=== PATIENT | male | born 1965 | race Caucasian/White ===

== ENCOUNTER 2023-03-06 10:17 | Inpatient (IN) | payer SELFPAY ==
[2023-03-06] MEDS ORDERED: NA CHLORIDE 0.9% 1,000 ML ONE (10:37)
--- NOTE | 2023-03-06 10:44 | RAD REPORT ---
EXAM DESCRIPTION: RAD - Chest Single View - 03/06/2023 10:34 am CLINICAL HISTORY: COUGH COMPARISON: No comparisons FINDINGS: Lines: None. Lungs: Right upper lobe masslike opacity with widespread irregular airspace disease bilaterally. Pleural: No significant pleural effusions or pneumothorax. Cardiac: The heart size is within normal limits. Mediastinum: Esophageal stent. Tracheostomy. Bones: No acute fractures. Other: Left IJ approach Port-A-Cath with tip overlying the SVC. IMPRESSION: Widespread airspace disease including a masslike right upper lobe opacity. These finding s could represent a combination of factors including pneumonia, metastatic disease, and less likely, edema.
[2023-03-06 11:00] LABS: Absolute Lymphocytes (CBC) 0.3 K/uL (0.7-4.9); Hematocrit 30.4 % (39.6-49.0); Lymphocytes % 3.2 % (15.3-44.8); MCV 80.1 fL (80-100)
[2023-03-06 11:06] LABS: Protime INR 1.19
[2023-03-06] MEDS ORDERED: VANCOMYCIN 1 GM/VIAL ONE (11:15)
[2023-03-06] MEDS ORDERED: CEFEPIME 2 GM VIAL ONE (11:15)
[2023-03-06] MEDS ORDERED: NA CHLORIDE 0.9% 100 ML ONE (11:16)
[2023-03-06] MEDS ORDERED: NA CHLORIDE 0.9% 250 ML ONE (11:16)
[2023-03-06 11:17] LABS: Albumin 2.2 g/dL (3.4-5.0); Bilirubin Total 0.4 mg/dL (0.2-1.0); Potassium 5.1 mEq/L (3.5-5.1); Protein, Total 7.2 g/dL (6.4-8.2)
[2023-03-06 11:24] LABS: Anisocytosis 2+; Blood Morphology Comment NOTED (NOT SEEN); Platelet Estimate INCR
--- NOTE | 2023-03-06 12:10 | EDPHYS ---
Physician Documentation [facility] Name: Diego Mclean Age: 57 yrs Sex: Male : 1965 Arrival Date: 03/06/2023 Time: 10:17 Bed 4 Private MD: ED Physician Tal Anton HPI: 03/06 10:59 This 57 yrs old Male presents to ER via EMS with complaints of Respiratory Distress. rt 10:59 Patient with history of advanced lung cancer presents to the ED with hypoxia. Patient rt called EMS for dehydration, was recently discharged from [facility] for the same. Oxygen saturations were noted to be at 75% on room air. The patient reports increased tracheal sputum. The patient reports continued cough, dyspnea. Denies other acute complaints at this time. Symptoms are severe in severity, no other aggravating or alleviating factors.. Historical: - Allergies: 10:38 No Known Allergies; ss - PMHx: 10:38 Lung CA; ss 11:02 Diabetes mellitus; ss - PSHx: 10:38 Trach placement; ss - Immunization history:: Client reports receiving the 2nd dose of the Covid vaccine. - Family history:: not pertinent. ROS: 10:59 Constitutional: Negative for fever, chills, and weight loss, Cardiovascular: Negative rt for chest pain, palpitations, and edema, Abdomen/GI: Negative for abdominal pain, nausea, vomiting, diarrhea, and constipation, MS/Extremity: Negative for injury and deformity, Skin: Negative for injury, rash, and discoloration, Neuro: Negative for headache, weakness, numbness, tingling, and seizure, Psych: Negative for depression, anxiety, suicide ideation, homicidal ideation, and hallucinations. 10:59 Respiratory: Positive for cough, shortness of breath. Exam: 10:59 Constitutional: This is a well developed, well nourished patient who is awake, alert, rt and in no acute distress. Head/Face: Normocephalic, atraumatic. Chest/axilla: Normal chest wall appearance and motion. Nontender with no deformity. No lesions are appreciated. Cardiovascular: Regular rate and rhythm with a normal S1 and S2. No gallops, murmurs, or rubs. Normal PMI, no JVD. No pulse deficits. Abdomen/GI: Soft, non-tender, with normal bowel sounds. No distension or tympany. No guarding or rebound. No evidence of tenderness throughout. Skin: Warm, dry with normal turgor. Normal color with no rashes, no lesions, and no evidence of cellulitis. MS/ Extremity: Pulses equal, no cyanosis. Neurovascular intact. Full, normal range of motion. 10:59 Neck: Tracheostomy in place with copious amounts of thick sputum. 10:59 Respiratory: Diminished, coarse breath sounds diffusely with transmitted upper airway sounds. 11:17 ECG was reviewed by the Attending Physician. rt Vital Signs: 10:20 BP 103 / 54; Pulse 105; Resp 22; Temp 97.6(TE); Pulse Ox 82% on R/A; ss 10:58 Pulse 111; Resp 24; Pulse Ox 94% on trach collar \T\ 10 L; ss 11:13 BP 113 / 75; Pulse Ox 95% on tach collar; ss 11:26 Weight 72.57 kg; Height 5 ft. 5 in. ; ss 12:22 BP 106 / 69; Pulse 108; Resp 22; Pulse Ox 98% on R/A; ss 11:26 Body Mass Index 26.63 (72.57 kg, 165.1 cm) ss MDM: 10:20 Patient medically screened. rt 14:32 Differential diagnosis: CHF exacerbation, Chronic Obstructive Pulmonary Disease rt pneumonia, Pneumothorax Pulmonary Embolism. Antibiotic administration: The patient is for pseudomonal infection. Data reviewed: vital signs, nurses notes, lab test result(s), EKG, radiologic studies. Consideration of Admission/Observation Patient was admitted/placed on observation. Management of patient was discussed with the following: Hospitalist: Agrees to admit. Supervisor Assembly And Packing: Discussed with pulmonary on-call, get admitted here, recommend CT angiogram. I considered the following discharge prescriptions or medication management in the emergency department Medications were administered in the Emergency Department. See MAR. Care significantly affected by the following chronic conditions: lung cancer. Counseling: I had a detailed discussion with the patient and/or guardian regarding: the historical points, exam findings, and any diagnostic results supporting the discharge/admit diagnosis, lab results, radiology results, the need for further work-up and treatment in the hospital. 03/06 10:22 Order name: Blood Culture Adult (2) rt 03/06 10:22 Order name: CBC with Diff; Complete Time: 11:38 rt 03/06 10:22 Order name: CMP; Complete Time: 11:38 rt 03/06 10:22 Order name: Lactate w/ 2H reflex if indic.; Complete Time: 11:38 rt 03/06 10:22 Order name: Protime (+inr); Complete Time: 11:38 rt 03/06 10:22 Order name: Ptt, Activated; Complete Time: 11:38 rt 03/06 10:22 Order name: Urinalysis w/ reflexes rt 03/06 10:22 Order name: Sputum Culture rt 03/06 11:03 Order name: COVID-19 SARS RT PCR; Complete Time: 12:07 ss 03/06 11:03 Order name: Flu; Complete Time: 12:07 ss 03/06 11:04 Order name: Manual Differential; Complete Time: 11:38 EDMS 03/06 14:14 Order name: Lactate Sepsis 2 HR Follow-up; Complete Time: 14:26 EDMS 03/06 14:50 Order name: Basic Metabolic Panel EDMS 03/06 14:50 Order name: Basic Metabolic Panel EDMS 03/06 14:50 Order name: CBC with Automated Diff EDMS 03/06 14:50 Order name: CBC with Automated Diff EDMS 03/06 14:50 Order name: Comprehensive Metabolic Panel EDMS 03/06 14:50 Order name: Comprehensive Metabolic Panel EDMS 03/06 14:50 Order name: Troponin High Sensitivity EDMS 03/06 10:22 Order name: Chest Single View XRAY; Complete Time: 10:52 rt 03/06 14:30 Order name: CT Chest Angio rt 03/06 10:22 Order name: EKG; Complete Time: 10:23 rt 03/06 14:50 Order name: Full Liquid EDMS 03/06 10:22 Order name: Cardiac monitoring; Complete Time: 10:58 rt 03/06 10:22 Order name: EKG - Nurse/Tech; Complete Time: 11:17 rt 03/06 10:22 Order name: IV Saline Lock - Large Bore; Complete Time: 10:58 rt 03/06 10:22 Order name: Labs collected and sent; Complete Time: 10:58 rt 03/06 10:22 Order name: O2 Per Protocol; Complete Time: 10:58 rt 03/06 10:22 Order name: O2 Sat Monitoring; Complete Time: 10:58 rt 03/06 10:22 Order name: Vital Signs; Complete Time: 10:58 rt 03/06 10:22 Order name: Suction; Complete Time: :58 rt EC:17 Rate is 104 beats/min. Rhythm is regular, Normal Sinus Rhythm with Right bundle branch rt block. QRS [place] is Normal. AR interval is normal. QRS interval is normal. QT interval is normal. Interpreted by me. Administered Medications: 10:45 Drug: NS 0.9% IV 1000 ml Route: IV; Rate: 1 bolus; Site: right upper arm; ss 11:25 Drug: Cefepime IVPB 2 grams Route: IVPB; Rate: 200 ml/hr; Infused Over: 30 mins; Site: ss right upper arm; 11:58 Drug: vancoMYCIN IVPB 1 grams Route: IVPB; Infused Over: 2 hrs; Site: right upper arm; ss Disposition: 14:42 Critical Care:. rt Disposition Summary: 03/06/23 14:27 Hospitalization Ordered Hospitalization Status: Inpatient Admission rt Location: Telemetry/[facility] (Inpatient) rt Condition: Fair(03/06/23 14:27) rt Problem: new(03/06/23 14:27) rt Symptoms: have improved(03/06/23 14:27) rt Bed/Room Type: Standard rt Provider: Karthik Vazquez(03/06/23 14:34) rt Room Assignment: [facility](03/06/23 15:09) Diagnosis - Healthcare associated pneumonia rt - Severe sepsis rt - Hypoxic respiratory failure rt Forms: - Medication Reconciliation Form rt - SBAR form rt Critical care time excluding procedures: 14:42 Critical care time: Bedside Care: 30 minutes, Consultation: 5 minutes. Total time: 35 rt minutes Signatures: Dispatcher [employer] EDLaura Storey RN RN Angelic Blanco Ryan, MD MD rt Corrections: (The following items were deleted from the chart) 11:28 10:22 Accucheck ordered. rt ss 12:42 10:23 Arterial Blood Gas+RC.LAB.BRZ ordered. EDMS EDMS 14: 12:10 rt rt 14: 12:10 [facility]-System rt rt 14: 12:10 Patient request rt rt 14: 12:10 Serious rt rt 14: 12:10 new rt rt 14: 12:10 have improved rt rt 14: 12:10 Healthcare associated pneumonia rt rt 12:10 Severe sepsis rt rt 12:10 Hypoxic respiratory failure rt rt 14 14:27 Yuan Champion rt rt 15: 14: rt eb
--- NOTE | 2023-03-06 12:10 | ER ---
Nurse's Notes [facility] Name: Diego Mclean Age: 57 yrs Sex: Male : 1965 Arrival Date: 03/06/2023 Time: 10:17 Bed 4 Private MD: Diagnosis: Healthcare associated pneumonia;Severe sepsis;Hypoxic respiratory failure Presentation: 03/06 10:20 Chief complaint: Patient states: Called 911 for dehydration. Upon arrival, EMS noted ss patient to have some difficulty breathing. RA O2 was 57%. After administering O2 VIA Trach collar, O2 returned to 92%. Pt has no other complaints at this time other than he feels like he may be dehydrated. Coronavirus screen: Client denies travel out of the [place] in the last 14 days. Ebola Screen: Patient denies exposure to infectious person. Patient denies travel to an Ebola-affected area in the 21 days before illness onset. Initial Sepsis Screen: Does the patient meet any 2 criteria? No. Patient's initial sepsis screen is negative. Does the patient have a suspected source of infection? Yes: Productive cough/pneumonia. Risk Assessment: Do you want to hurt yourself or someone else? Patient reports no desire to harm self or others. Onset of symptoms was March 06, 2023. 10:20 Method Of Arrival: EMS: [facility] ss 10:20 Acuity: ALEX 2 ss 10:20 Care prior to arrival: Medication(s) given: Normal saline infusion, 1000 mL, IV ss initiated. 20 GA, in the left forearm. Historical: - Allergies: 10:38 No Known Allergies; ss - PMHx: 10:38 Lung CA; ss 11:02 Diabetes mellitus; ss - PSHx: 10:38 Trach placement; ss - Immunization history:: Client reports receiving the 2nd dose of the Covid vaccine. - Family history:: not pertinent. Screenin:00 [facility] ED Fall Risk Assessment (Adult) History of falling in the last 3 months, ss including since admission No falls in past 3 months (0 pts). Abuse screen: Denies threats or abuse. Denies injuries from another. Tuberculosis screening: Never had TB. Assessment: 11:01 Reassessment: Educated patient how to use call light. Pt nodded head in understanding. zahida Link RT at bedside attempting to obtained ABG. 11:26 Reassessment: Pt requesting transfer back to [facility]. Dr. Anton agrees with ss transfer. Lights dimmed for comfort. Call light within reach. 14:17 Reassessment: Dr. Anton at bedside updating pt on plan of care. ss 15:23 Reassessment: Report given to NAYELI Villalta. Pt in CT at this time. Awaiting for patient ss to return prior to transfer upstairs. Vital Signs: 10:20 BP 103 / 54; Pulse 105; Resp 22; Temp 97.6(TE); Pulse Ox 82% on R/A; ss 10:58 Pulse 111; Resp 24; Pulse Ox 94% on trach collar \T\ 10 L; ss 11:13 BP 113 / 75; Pulse Ox 95% on tach collar; ss 11:26 Weight 72.57 kg; Height 5 ft. 5 in. ; ss 12:22 BP 106 / 69; Pulse 108; Resp 22; Pulse Ox 98% on R/A; ss 11:26 Body Mass Index 26.63 (72.57 kg, 165.1 cm) ED Course: 10:20 Patient arrived in ED. ss 10:20 Tal Anton MD is Attending Physician. rt 10:35 Chest Single View XRAY In Process Unspecified. EDMS 10:38 Triage completed. ss 10:38 Arm band placed on right wrist. ss 10:42 Inserted saline lock: 22 gauge in right upper arm, using aseptic technique. Blood ss collected. 10:58 Laura Hilario, NAYELI is Primary Nurse. ss 11:00 Patient has correct armband on for positive identification. Bed in low position. Call ss light in reach. Side rails up X2. Client placed on continuous cardiac and pulse oximetry monitoring. NIBP monitoring applied. Warm blanket given. 11:00 Maintain EMS IV. Dressing intact. Site clean \T\ dry. Gauge \T\ site: 20 gauge in L AC. ss 11:08 Flu Sent. ss 11:08 COVID-19 SARS RT PCR Sent. ss 12:15 initiated a transfer with Ilia Carmona from the [facility] Transfer Center at the request eb of the patient. 12:37 faxed patient demographic to Ilia / he will call back. eb 14:26 Yuan Champion is Hospitalizing Provider. rt 14:34 Hospitalizing Provider role handed off by Yuan Champion rt 14:34 Karthik Vazquez MD is Hospitalizing Provider. rt 15:26 CT Chest Angio In Process Unspecified. EDMS 15:39 No provider procedures requiring assistance completed. Patient admitted, IV remains in ss place. Administered Medications: 10:45 Drug: NS 0.9% IV 1000 ml Route: IV; Rate: 1 bolus; Site: right upper arm; ss 11:25 Drug: Cefepime IVPB 2 grams Route: IVPB; Rate: 200 ml/hr; Infused Over: 30 mins; Site: ss right upper arm; 11:58 Drug: vancoMYCIN IVPB 1 grams Route: IVPB; Infused Over: 2 hrs; Site: right upper arm; ss Medication: 12:22 VIS not applicable for this client. ss Outcome: 12:10 ER care complete, transfer ordered by . rt 14:27 Decision to Hospitalize by Provider. rt 15:39 Admitted to Tele accompanied by tech, room 213. ss 15:39 Condition: good 15:39 Instructed on the need for admit. 15:39 Patient left the ED. Signatures: Dispatcher [employer] Laura Alejo RN RN Angelic Thompson Ryan, MD MD rt
[2023-03-06] MEDS ORDERED: ALBUTEROL 2.5 MG/3 ML NEB SOL NEB PRN (14:45)
[2023-03-06] MEDS ORDERED: ONDANSETRON 4 MG (ODT) TAB PO PRN (14:45)
--- NOTE | 2023-03-06 14:53 | P.HP ---
Certification for Inpatient With expected LOS: >2 Midnights Practitioner: I am a practitioner with admitting privileges, knowledge of patient current condition, hospital course, and medical plan of care. Services: Services provided to patient in accordance with Admission requirements found in Title 42 Section 412.3 of the Code of Federal Regulations Patient History Date of Service: 03/07/23 Reason for admission: Hypoxemia pneumonia History of Present Illness: Patient is 57 years of age with a history of metastatic lung cancer s/p tracheostomy. From the emergency room with hypoxemia low saturations possible pneumonia with metastatic lung disease Allergies No Known Allergies Allergy (Unverified 03/06/23 15:08) - Past Medical/Surgical History -: History of lung cancer s/p tracheostomy -: Diabetes Review of Systems is unable to be obtained Physical Examination - Vital Signs Temperature: 97.6 F Blood Pressure: 103/54 Pulse: 105 Respirations: 22 Pulse Ox (%): 82 - Physical Exam General: Alert (Room air), Cooperative Respiratory: Clear to auscultation bilaterally, Diminished Cardiovascular: No edema, Normal pulses, Normal S1 S2 Gastrointestinal: Normal bowel sounds, Soft and benign Musculoskeletal: No clubbing, No swelling - Studies Laboratory Data (last 24 hrs) 03/06/23 10:48: PT 13.1 H, INR 1.19, APTT 25.1 03/06/23 10:48: Sodium 135 L, Potassium 5.1, BUN 34 H, Creatinine 0.80, Glucose 232 H, Total Bilirubin 0.4, AST 44 H, ALT 18, Alkaline Phosphatase 107 03/06/23 10:48: WBC 8.90, Hgb 9.6 L, Hct 30.4 L, Plt Count 664 H Microbiology Data (last 24 hrs): 03/06/23 11:06 Nasopharnyx Influenza Type A Antigen Screen - Final 03/06/23 11:06 Nasopharnyx Influenza Type B Antigen Screen - Final Assessment and Plan - Problems (Diagnosis) (1) Pneumonia Current Visit: Yes Status: Acute Plan: Patient is 57 years of age with a history of metastatic lung cancer is post tracheostomy which is recently discharged from [facility] came back again here with hypoxemia to be in respiratory distress coughing up some purulent sputum chest x-ray looks very abnormal perhaps underlying pneumonia have ordered a CT scan with and angiogram to rule out pulmonary embolism patient with cefepime cultures sputum's IV fluids patient's lactic acid is elevated white count is normal mildly anemic Qualifiers: Pneumonia type: due to unspecified organism Laterality: bilateral (2) Non-STEMI (non-ST elevated myocardial infarction) Current Visit: Yes Status: Acute Plan: Patient appears to have a non-STEMI his troponins are elevated consult cardiology 2D echocardiogram Lovenox and aspirin - Advance Directives Does patient have a Living Will: No Does patient have a Durable POA for Healthcare: No
--- NOTE | 2023-03-06 15:43 | RAD REPORT ---
EXAM DESCRIPTION: CT - Chest Angio - 03/06/2023 3:25 pm CLINICAL HISTORY: DYSPNEA COMPARISON: No comparisons TECHNIQUE: Dynamically enhanced axial 3 mm thick images of the chest were obtained during administra tion of <100> mL Isovue 370 IV contrast. Coronal and oblique reconstruction images were generated and reviewed. Exam utilizes a protocol for optimal evaluation of pulmonary arterial tree. Maximum intensity projections 3D imaging was utilized All CT scans are performed using dose optimization technique as appropriate and may include automated exposure control or mA/KV adjustment according to patient size. FINDINGS: Chest Wall: Tracheostomy. Lungs: Widespread bilateral masslike nodules with surrounding ground-glass opacities and other areas of micro nodularity. Interlobular septal thickening is present. Pleura: No significant effusions or pneumothorax. Mediastinum/chan: Confluent hilar and mediastinal lymphadenopathy. Pulmonary arteries/Aorta: No filling defect identified. No aortic aneurysm. Heart: No significant pericardial effusion. Normal heart size. Multi-vessel coronary artery disease. Upper abdomen: GJ tube is partially imaged. Bones: No acute abnormality. IMPRESSION: Negative for pulmonary embolism. Severe widespread pulmonary nodularity and mediastinal/ hilar adenopathy presumably representing primarily metastatic disease. Other findings including micro nodularity and interlobular septal thickening could be due to various etiologies including edema, lym phangitic spread of tumor, and/or aspiration.
[2023-03-06] MEDS: NA CHLORIDE 0.9% 1,000 ML IV SCH (15:53)
[2023-03-06 16:07] VITALS: BMI 26.6
[2023-03-06] MEDS ORDERED: ENOXAPARIN 40 MG/0.4 ML SQ SCH (17:00)
[2023-03-06] MEDS ORDERED: ASPIRIN 81 MG CHEWABLE TABLET PO ONE (18:56)
[2023-03-06] MEDS: CEFEPIME 2 GM in NA CHLORIDE 0.9% 100 ML IV SCH (19:43)
[2023-03-06] MEDS: ENOXAPARIN 80 MG/0.8 ML SQ SCH (19:50)
[2023-03-07] MEDS: CEFEPIME 2 GM in NA CHLORIDE 0.9% 100 ML IV SCH ×3 (02:44→20:07)
[2023-03-07 04:00] LABS: Absolute Lymphocytes (CBC) 0.4 K/uL (0.7-4.9); Hematocrit 27.3 % (39.6-49.0); Lymphocytes % 4.2 % (15.3-44.8); MCV 79.1 fL (80-100); MPV 7.2 fL (7.6-11.3); RBC Red Blood Cell Count 3.45 M/uL (4.33-5.43)
[2023-03-07 04:31] LABS: Albumin 1.7 g/dL (3.4-5.0); Bilirubin Total 0.5 mg/dL (0.2-1.0)
[2023-03-07 04:33] LABS: Troponin High Sensitivity 5027.1 pg/mL (<58.9)
[2023-03-07] MEDS: NA CHLORIDE 0.9% 1,000 ML IV SCH ×2 (05:18→06:22)
[2023-03-07] MEDS: ENOXAPARIN 80 MG/0.8 ML SQ SCH ×2 (07:56→20:08)
--- NOTE | 2023-03-07 08:51 | EKG ---
Test Date: 2023-03-06 Test Time: 11:11:05 Crossbar Frame Wirer: SHAQUILLE MEASUREMENT RESULTS: Intervals: Rate: 104 VA: 156 QRSD: 96 QT: 352 QTc: 462 [place]: P: 78 VA: 156 QRS: 60 T: 27 INTERPRETIVE STATEMENTS: Sinus tachycardia Septal infarct, age undetermined Abnormal ECG Compared to ECG 12/07/2007 12:58:57 Myocardial infarct finding now present Sinus rhythm no longer present ST (T wave) deviation no longer present Electronically Signed On 03-07-23 08:49:45 CDT by Bharat Cloud
--- NOTE | 2023-03-07 10:44 | P.PN ---
Subjective Date of Service: 03/07/23 Chief Complaint: Hypoxemia pneumonia No change in patient's condition patient wants to be transferred to [facility] Review of Systems is unable to be obtained Physical Examination - Vital Signs Temperature: 97.1 F Blood Pressure: 104/55 Pulse: 88 Respirations: 17 Pulse Ox (%): 97 - Physical Exam General: Alert, Cooperative Respiratory: Clear to auscultation bilaterally, Diminished Cardiovascular: No edema, Regular rate/rhythm, Normal S1 S2 - Studies Laboratory Data (last 24 hrs) 03/06/23 10:48: PT 13.1 H, INR 1.19, APTT 25.1 03/06/23 10:48: Sodium 135 L, Potassium 5.1, BUN 34 H, Creatinine 0.80, Glucose 232 H, Total Bilirubin 0.4, AST 44 H, ALT 18, Alkaline Phosphatase 107 03/06/23 10:48: WBC 8.90, Hgb 9.6 L, Hct 30.4 L, Plt Count 664 H Microbiology Data (last 24 hrs): 03/06/23 11:23 Sputum Sputum Gram Stain - Final 03/06/23 11:06 Nasopharnyx Influenza Type A Antigen Screen - Final 03/06/23 11:06 Nasopharnyx Influenza Type B Antigen Screen - Final Assessment And Plan - Current Problems (Diagnosis) (1) Pneumonia Current Visit: Yes Status: Acute Plan: Patient is 57 years of age with terminal metastatic lung cancer he has bilateral patchy infiltrate evidence of pulmonary emboli bilateral pneumonia we will resume tube feeds add vancomycin White count is normal patient's cultures are pending so far sputum cultures are negative Qualifiers: Pneumonia type: due to unspecified organism Laterality: bilateral (2) Non-STEMI (non-ST elevated myocardial infarction) Current Visit: Yes Status: Acute Plan: Patient appears to have a non-STEMI his troponins are elevated consult car diology 2D echocardiogram heparin and aspirin also give 1 dose of Lasix
[2023-03-07] MEDS ORDERED: FUROSEMIDE 20 MG/ 2ML VIAL IV ONE (10:56)
[2023-03-07] MEDS ORDERED: HYDROMORPHONE HCL 2 MG/ML inj IV PRN (11:10)
[2023-03-07] MEDS: ASPIRIN EC 81 MG TAB PO SCH (11:19)
[2023-03-07] MEDS: VANCOMYCIN 1.25 GM in NA CHLORIDE 0.9% 250 ML IVPB SCH (12:24)
[2023-03-07] MEDS: ALBUTEROL 2.5 MG/3 ML NEB SOL NEB PRN (21:20)
[2023-03-07] MEDS: GABAPENTIN 300 MG CAP PO SCH (21:41)
[2023-03-07] MEDS: HYDROMORPHONE ORAL 4 MG TAB PO PRN (21:41)
[2023-03-07] MEDS ORDERED: JEVITY 1.2 CAL LIQUID 1,000 ML BOT FT SCH (23:45)
[2023-03-08] MEDS: VANCOMYCIN 1.25 GM in NA CHLORIDE 0.9% 250 ML IVPB SCH ×2 (00:52→12:25)
[2023-03-08] MEDS: CEFEPIME 2 GM in NA CHLORIDE 0.9% 100 ML IV SCH ×4 (03:16→20:07)
[2023-03-08] MEDS: ALBUTEROL 2.5 MG/3 ML NEB SOL NEB PRN (07:57)
[2023-03-08] MEDS: ENOXAPARIN 80 MG/0.8 ML SQ SCH ×2 (08:58→20:06)
[2023-03-08] MEDS: GABAPENTIN 300 MG CAP PO SCH ×3 (08:58→20:07)
[2023-03-08] MEDS: ASPIRIN EC 81 MG TAB PO SCH (08:58)
[2023-03-08] MEDS ORDERED: METFORMIN HCL 500 MG TAB PO SCH (09:00)
--- NOTE | 2023-03-08 14:38 | ECHO ---
HEIGHT: 5 ft 5 in WEIGHT: 159 lb 15.831 oz DATE OF STUDY: 03/08/[address]: Bharat Cloud MD 2-DIMENSIONAL: YES M.MODE: YES DOPPLER: YES COLOR FLOW: YES TDS: PORTABLE: YES DEFINITY: BUBBLE STUDY: DIAGNOSIS: TROPONIN ELEVATION CARDIAC HISTORY: CATHERIZATION: SURGERY: PROSTHETIC VALVE: PACEMAKER: MEASUREMENTS (cm) DIASTOLIC (NORMALS) SYSTOLIC (NORMALS) IVSd 0.8 (0.6-1.2) LA Diam (1.9-4.0) LVEF 52% LVIDd 4.4 (3.5-5.7) LVIDs 3.2 (2.0-3.5) %FS 26% LVPWd 1.1 (0.6-1.2) Ao Diam 2.4 (2.0-3.7) 2 DIMENSIONAL ASSESSMENT: RIGHT ATRIUM: NORMAL LEFT ATRIUM: NORMAL RIGHT VENTRICLE: NORMAL LEFT VENTRICLE: NORMAL TRICUSPID VALVE: NORMAL MITRAL VALVE: MILD MITRAL REGURGITATION PULMONIC VALVE: NORMAL AORTIC VALVE: MILD AORTIC INSUFFICIECNY PERICARDIAL EFFUSION: SMALL AORTIC ROOT: NORMAL LEFT VENTRICULAR WALL MOTION: NORMAL DOPPLER/COLOR FLOW: SEE BELOW COMMENTS: 1. NORMAL LEFT VENTRICULAR EJECTION FRACTION 55-60% 2. NORMAL WALL MOTION 3. MILD MITRAL REGURGITATION 4. SMALL PERICARDIAL EFFUSION TECHNOLOGIST: ESPINOZA LUX
--- NOTE | 2023-03-08 15:40 | P.PN ---
Subjective Date of Service: 03/08/23 Chief Complaint: Hypoxemia pneumonia No acute events overnight. He reports persistent shortness of breath. He request to be transferred to [facility]; however, this was denied due to an "administrative denial." He denies any chest discomfort or palpitations. Appreciate Pulmonology and Cardiology recommendations. Review of Systems 10-point ROS is otherwise unremarkable Respiratory: Shortness of Breath Physical Examination - Vital Signs Temperature: 98.1 F Blood Pressure: 133/74 Pulse: 82 Respirations: 18 Pulse Ox (%): 98 - Physical Exam General: Alert, In no apparent distress, Oriented x3 HEENT: Atraumatic, Mucous membr. moist/pink, Other (S/p tracheostomy), Sclerae nonicteric Respiratory: Diminished, Rhonchi/gurgles Cardiovascular: Normal pulses, Regular rate/rhythm, Normal S1 S2, No gallops, No rubs, No murmurs Gastrointestinal: Normal bowel sounds, Soft and benign, Non-distended, No tenderness, No rebound, No guarding Musculoskeletal: No clubbing Integumentary: No rashes Neurological: Normal affect - Studies Microbiology Data (last 24 hrs): 03/06/23 11:23 Sputum Sputum Gram Stain - Final 03/06/23 11:23 Sputum Culture & Sensitivity - Final NORMAL QUANTITY OF UPPER RESPIRATORY FELY GROWN. Assessment And Plan - Plan # Severe Sepsis suspect secondary to Post-Obstructive Pneumonia - POA He met sepsis criteria based on HR > 90 bpm and RR > 20 breaths/min, and the suspected source is pneumonia. Severe sepsis is suspected due to concern for tissue hypoperfusion/organ dysfunction based on lactic acid > 2 mmol/L. - Sepsis order set was initiated - Lactate trend: 2.7 -> 1.8 - Blood cultures drawn = NGTD - Broad spectrum antibiotics started: Vancomycin + Cefepime - In regards to fluids: - 30 mL/kg of IV fluids was not administered given SBP > 90, MAP > 65, lactic acid < 4 - Pulmonology consulted - recommendations appreciated # Non-ST Segment Elevation Myocardial Infarction - Evaluation thus far: - EKG: without reported STEMI criteria, trend - Serial troponin: 5573.5 -> 5970.0 -> 5027.1 - Transthoracic echocardiogram = "1. normal left ventricular ejection fraction 55-60% 2. normal wall motion 3. mild mitral regurgitation 4. small pericardial effusion" - Management plan: - Consult Cardiology - recommendations appreciated - Continue aspirin, enoxaparin - Started atorvastatin - If tolerated, plan to start beta-raphael and ASIA-inhibitor/ARB # Metastatic Lung Cancer s/p Esophageal Stenting, Gastrojejunal Tube, and Tracheostomy - Evaluation thus far: - Chest x-ray = "widespread airspace disease including a masslike right upper lobe opacity. These findings could represent a combination of factors including pneumonia, metastatic disease, and less likely, edema." - CT chest angiogram = "Negative for pulmonary embolism. Severe widespread pulmonary nodularity and mediastinal/hilar adenopathy presumably representing primarily metastatic disease. Other findings including micronodularity and interlobular septal thickening could be due to various etiologies including edema, lymphangitic spread of tumor, and/or aspiration." - Management plan: - Mr. Mclean requested transfer to [facility] for continuity of care - Transfer initiated by community resource consultant. I am told that the transfer was denied per "Administrative Denial." I did not have an opportunity to speak with a physician at [facility]. - Follow-up with Oncology as an outpatient # Type II Diabetes Mellitus - Correction scale insulin Morales Sierra M.D.
[2023-03-08] MEDS: HYDROMORPHONE ORAL 4 MG TAB PO PRN (15:53)
[2023-03-08] MEDS: GLUCERNA 1.5 CAL 1,000 ML BOT FT SCH ×2 (17:10→22:26)
[2023-03-08] MEDS: HYDROCODONE/APAP 5/325 MG TAB PO PRN (20:07)
[2023-03-08] MEDS: MELATONIN 5 MG TABLET PO PRN (20:07)
[2023-03-08] MEDS: ATORVASTATIN 40 MG TAB PO SCH (20:23)
--- NOTE | 2023-03-08 20:46 | CON ---
Date of Consultation: 03/08/2023 Reason For Consultation: Elevated troponin. History Of Present Illness: Mr. Mclean is a 57-year-old male who has a history of diabetes, coronary artery disease, lung cancer. He has a tracheostomy. He has chronic anemia. He came in with damon hernandez who was just recently discharged from [facility] and then [place] for similar complaint. Co mes in hypoxic, low O2 saturation, wheezing, short of breath, coughing, chills, but no fever. Chest x-ray showed pneumonia. Troponin was 5000. No chest pain reported. Echocardiogram is pending. Rec ords from [place] are unavailable. Past Medical History: As stated above. Allergies: NONE. Review of Systems: Negative. Social History: Negative. Family History: Noncontributory. Medications: Present medications include inhalers, aspirin, Lovenox, Lasix, and antibiotics. Physical Examination: General: He had a trach. He was wheezing in moderate respiratory distress, sinus rhythm, afebrile. Lungs: Crackles throughout the lungs. Cardiac: Normal exam. Extremities: No edema in the extremities. Diagnostic Data: As stated earlier, chest x-ray showed pneumonia. EKG is nonspecific. Troponin is 5000, hemoglobin of 8. Impression And Plan: 1.Elevated troponin secondary to hypoxia and demand ischemia from pneumonia. 2.History of lung cancer. 3.Diabetes mellitus. 4.History of coronary artery disease, status post stents. 5.Anemia, borderline, for transfusion. Echocardiogram is pending. We will see what his wall motion is like. Continue inhalers, antibiotics, Lasix, Lovenox, and aspirin. No plan to do a heart cathet erization on him until his pneumonia is resolved. We will not plan any cardiac workup except with e echo for now. We will continue to follow him. EDVIN/MODL Voice ID: [id number] Report ID: [id number]
[2023-03-09] MEDS: VANCOMYCIN 1.25 GM in NA CHLORIDE 0.9% 250 ML IVPB SCH ×3 (00:23→23:39)
[2023-03-09] MEDS: HYDROMORPHONE ORAL 4 MG TAB PO PRN ×3 (00:23→23:49)
[2023-03-09] MEDS: CEFEPIME 2 GM in NA CHLORIDE 0.9% 100 ML IV SCH ×3 (03:22→21:38)
[2023-03-09] MEDS: HYDROCODONE/APAP 5/325 MG TAB PO PRN ×4 (03:22→21:36)
[2023-03-09 03:58] LABS: Magnesium 1.6 mg/dL (1.6-2.4); Potassium 3.2 mEq/L (3.5-5.1)
[2023-03-09] MEDS: ALBUTEROL 2.5 MG/3 ML NEB SOL NEB PRN (04:45)
[2023-03-09] MEDS ORDERED: POTASSIUM PHOS IN 0.9 % NACL 15 MMOL/250 ML BAG IV ONE (06:00)
[2023-03-09] MEDS: ENOXAPARIN 80 MG/0.8 ML SQ SCH ×2 (08:33→21:39)
[2023-03-09] MEDS: GABAPENTIN 300 MG CAP PO SCH ×3 (08:33→21:38)
[2023-03-09] MEDS: ASPIRIN EC 81 MG TAB PO SCH (08:33)
[2023-03-09] MEDS: GUAIFENESIN/DM 5 ML UCUP FT PRN ×2 (10:11→16:03)
[2023-03-09] MEDS: ASPIRIN 81 MG CHEWABLE TABLET FT SCH (10:11)
[2023-03-09] MEDS: GLUCERNA 1.5 CAL 1,000 ML BOT FT SCH ×4 (10:13→21:35)
--- NOTE | 2023-03-09 18:01 | P.PN ---
Subjective Date of Service: 03/09/23 Chief Complaint: Hypoxemia pneumonia No acute events overnight. He reports that his symptoms are unchanged compared to yesterday. We had an extensive goals of care discussion today. He stated that he is not interested in hospice services. He stated that he would like to continue aggressive medical therapy including, but not limited to, surgical interventions, chemotherapy, and radiation. He mentions that he does not have much support at home. He may benefit from nursing home facility given his new tracheostomy and tube feeding. Appreciate case management assistance. Review of Systems 10-point ROS is otherwise unremarkable Respiratory: Cough, Shortness of Breath Physical Examination - Vital Signs Temperature: 98.8 F Blood Pressure: 137/79 Pulse: 93 Respirations: 14 Pulse Ox (%): 92 Assessment And Plan - Plan - Physical Exam General: Alert, In no apparent distress, Oriented x3 HEENT: Atraumatic, Mucous membr. moist/pink, Other (S/p tracheostomy), Sclerae nonicteric Respiratory: Diminished, Rhonchi/gurgles Cardiovascular: Normal pulses, Regular rate/rhythm, No murmurs Gastrointestinal: Normal bowel sounds, Soft and benign, Non-distended, No tenderness Musculoskeletal: No clubbing Integumentary: No rashes Neurological: Normal affect # Severe Sepsis suspect secondary to Post-Obstructive Pneumonia - POA He met sepsis criteria based on HR > 90 bpm and RR > 20 breaths/min, and the suspected source is pneumonia. Severe sepsis is suspected due to concern for tissue hypoperfusion/organ dysfunction based on lactic acid > 2 mmol/L. - Sepsis order set was initiated - Lactate trend: 2.7 -> 1.8 - Blood cultures drawn = NGTD - Broad spectrum antibiotics started: Vancomycin + Cefepime - In regards to fluids: - 30 mL/kg of IV fluids was not administered given SBP > 90, MAP > 65, lactic acid < 4 - Pulmonology consulted - recommendations appreciated # Non-ST Segment Elevation Myocardial Infarction - Evaluation thus far: - EKG: without reported STEMI criteria, trend - Serial troponin: 5573.5 -> 5970.0 -> 5027.1 - Transthoracic echocardiogram = "1. normal left ventricular ejection fraction 55-60% 2. normal wall motion 3. mild mitral regurgitation 4. small pericardial effusion" - Management plan: - Consult Cardiology and spoke with Dr. Cloud - recommendations appreciated - He feels that the troponin leak is secondary to demand ischemia - Continue aspirin, enoxaparin, atorvastatin - If tolerated, plan to start beta-raphael and ASIA-inhibitor/ARB # Metastatic Lung Cancer s/p Esophageal Stenting, Gastrojejunal Tube, and Tracheostomy - Evaluation thus far: - Chest x-ray = "widespread airspace disease including a masslike right upper lobe opacity. These findings could represent a combination of factors including pneumonia, metastatic disease, and less likely, edema." - CT chest angiogram = "Negative for pulmonary embolism. Severe widespread pulmonary nodularity and mediastinal/hilar adenopathy presumably representing primarily metastatic disease. Other findings including micronodularity and interlobular septal thickening could be due to various etiologies including edema, lymphangitic spread of tumor, and/or aspiration." - Management plan: - Mr. Mclean requested transfer to [facility] for continuity of care. Transfer was denied per "Administrative Denial." - Follow-up with Oncology as an outpatient # Type II Diabetes Mellitus - Correction scale insulin # Deconditioning - Consulted PT/OT Morales Sierra M.D.
[2023-03-09] MEDS: ATORVASTATIN 40 MG TAB PO SCH (21:38)
[2023-03-09] MEDS: MELATONIN 5 MG TABLET PO PRN (22:15)
[2023-03-10 03:12] LABS: Absolute Lymphocytes (CBC) 0.8 K/uL (0.7-4.9); Lymphocytes % 14.4 % (15.3-44.8); MCV 78.4 fL (80-100); MPV 7.9 fL (7.6-11.3); RBC Red Blood Cell Count 3.57 M/uL (4.33-5.43)
[2023-03-10 03:14] LABS: Magnesium 1.7 mg/dL (1.6-2.4); Phosphorus 2.4 mg/dL (2.5-4.9); Potassium 3.1 mEq/L (3.5-5.1)
[2023-03-10 03:24] LABS: Troponin High Sensitivity 1539.6 pg/mL (<58.9)
[2023-03-10] MEDS: CEFEPIME 2 GM in NA CHLORIDE 0.9% 100 ML IV SCH ×3 (04:00→19:44)
[2023-03-10] MEDS: HYDROCODONE/APAP 5/325 MG TAB PO PRN ×2 (04:00→19:33)
--- NOTE | 2023-03-10 04:59 | EKG ---
Test Date: 2023-03-06 Test Time: 19:20:14 Audience Coordinator: NOBLE MEASUREMENT RESULTS: Intervals: Rate: 95 ID: [id number] QRSD: 96 QT: 380 QTc: 477 Taft: P: 77 ID: [id number] QRS: 68 T: 22 INTERPRETIVE STATEMENTS: Normal sinus rhythm Prolonged QT Abnormal ECG Compared to ECG 03/06/2023 11:11:05 Prolonged QT interval now present Sinus tachycardia no longer present Myocardial infarct finding no longer present Electronically Signed On 03-10-23 04:52:59 CDT by Bharat Cloud
[2023-03-10 06:04] LABS: Specific Gravity 1.009 (1.005-1.030); Urine Bilirubin NEGATIVE (Negative); Urine Blood Negative (Negative); Urine Clarity Clear (Clear); Urine Color Colorless (Yellow); Urine Glucose TRACE (Negative); Urine Protein NEGATIVE (Negative); Urine Urobilinogen Normal (Normal); Urine pH 7.5 (5.0-7.0)
[2023-03-10 06:23] LABS: Anisocytosis 1+; Blood Morphology Comment NOTED (NOT SEEN); Hypochromasia 1+; Platelet Estimate ADEQ
[2023-03-10] MEDS ORDERED: MAGNESIUM SULFATE 1 gm IVPB 1 GM/100 ML BAG IV ONE (09:00)
[2023-03-10] MEDS ORDERED: POTASSIUM 25 MEQ EFFERV TAB PO ONE (09:00)
[2023-03-10] MEDS: ENOXAPARIN 80 MG/0.8 ML SQ SCH ×2 (09:10→19:44)
[2023-03-10] MEDS: ASPIRIN 81 MG CHEWABLE TABLET FT SCH (09:10)
[2023-03-10] MEDS: POTASS/SODIUM PHOSPHATE 1 PKT POWD.PACK PO SCH ×2 (09:10→10:42)
[2023-03-10] MEDS: HYDROMORPHONE ORAL 4 MG TAB PO PRN (09:11)
[2023-03-10] MEDS: GABAPENTIN 300 MG CAP PO SCH ×3 (09:11→19:43)
[2023-03-10] MEDS: GLUCERNA 1.5 CAL 1,000 ML BOT FT SCH ×4 (09:12→19:44)
[2023-03-10] MEDS: ALBUTEROL 2.5 MG/3 ML NEB SOL NEB PRN (10:37)
[2023-03-10] MEDS: VANCOMYCIN 1.25 GM in NA CHLORIDE 0.9% 250 ML IVPB SCH (11:41)
--- NOTE | 2023-03-10 15:25 | PN ---
Mr. Mclean was admitted to Dr. Sierra and Dr. Vazquez. Has a history of lung cancer, status post tra cheostomy. Has a history of diabetes, coronary artery disease. Came in with a troponin of 5000 that we thought was secondary to demand ischemia. Echocardiogram was perfectly normal as far as wall mot ion is concerned. There was normal ejection fraction. No wall motion abnormalities. No valvular he art disease. There was a very small pericardial effusion, most likely secondary to his history of co jose cancer. We do not recommend any further cardiac workup on him. We will sign off his case for no w. He can go home whenever it is okay with consultants and admitting physician. EDVIN/RILEY Voice ID: [id number] Report ID: [id number]
--- NOTE | 2023-03-10 18:58 | P.PN ---
Subjective Date of Service: 03/10/23 Chief Complaint: Hypoxemia pneumonia No acute events overnight. He reports that his cough has improved significantly. He states that his shortness of breath is unchanged. He seems to be improving gradually. Appreciate CM assistance with SNF placement. Review of Systems 10-point ROS is otherwise unremarkable Respiratory: Cough, Shortness of Breath Physical Examination - Vital Signs Temperature: 98.9 F Blood Pressure: 150/74 Pulse: 80 Respirations: 16 Pulse Ox (%): 95 Assessment And Plan - Plan - Physical Exam General: Alert, In no apparent distress, Oriented x3 HEENT: Atraumatic, Mucous membr. moist/pink, Other (s/p tracheostomy), Sclerae nonicteric Respiratory: Diminished, faint rhonchi/gurgles Cardiovascular: Normal pulses, Regular rate/rhythm, No murmurs Gastrointestinal: Normal bowel sounds, Soft, Non-distended, No tenderness Musculoskeletal: No clubbing Integumentary: No rashes Neurological: Normal affect # Severe Sepsis suspect secondary to Post-Obstructive Pneumonia - POA - improving He met sepsis criteria based on HR > 90 bpm and RR > 20 breaths/min, and the suspected source is pneumonia. Severe sepsis is suspected due to concern for tissue hypoperfusion/organ dysfunction based on lactic acid > 2 mmol/L. - Sepsis order set was initiated - Lactate trend: 2.7 -> 1.8 - Blood cultures drawn = NGTD - Broad spectrum antibiotics started: Vancomycin + Cefepime - In regards to fluids: - 30 mL/kg of IV fluids was not administered given SBP > 90, MAP > 65, lactic acid < 4 - Pulmonology consulted - recommendations appreciated # Type II Non-ST Segment Elevation Myocardial Infarction (Demand Ischemia) due to above - Evaluation thus far: - EKG: without reported STEMI criteria, trend - Serial troponin: 5573.5 -> 5970.0 -> 5027.1 -> 1539.6 - Transthoracic echocardiogram = "1. normal left ventricular ejection fraction 55-60% 2. normal wall motion 3. mild mitral regurgitation 4. small pericardial effusion" - Management plan: - Consult Cardiology and spoke with Dr. Cloud - recommendations appreciated - He feels that the troponin leak is secondary to demand ischemia - Continue aspirin, enoxaparin, atorvastatin - If tolerated, plan to start beta-raphael and ASIA-inhibitor/ARB # Metastatic Lung Cancer s/p Esophageal Stenting, Gastrojejunal Tube, and Tracheostomy - Evaluation thus far: - Chest x-ray = "widespread airspace disease including a masslike right upper lobe opacity. These findings could represent a combination of factors including pneumonia, metastatic disease, and less likely, edema." - CT chest angiogram = "Negative for pulmonary embolism. Severe widespread pulmonary nodularity and mediastinal/hilar adenopathy presumably representing primarily metastatic disease. Other findings including micronodularity and interlobular septal thickening could be due to various etiologies including edema, lymphangitic spread of tumor, and/or aspiration." - Management plan: - Mr. Mclean requested transfer to [facility] for continuity of care. Transfer was denied per "Administrative Denial." - Awaiting records from [facility] - spoke with rn discharge, who will attempt to c ontact [facility] again today - Follow-up with Oncology as an outpatient # Type II Diabetes Mellitus - Correction scale insulin # Deconditioning - Consulted PT/OT - Appreciate CM assistance with SNF placement Morales Sierra M.D.
[2023-03-10] MEDS: ATORVASTATIN 40 MG TAB PO SCH (19:43)
[2023-03-10] MEDS: VANCOMYCIN 1.5 GM in NA CHLORIDE 0.9% 500 ML IVPB SCH (22:15)
[2023-03-10] MEDS: MELATONIN 5 MG TABLET PO PRN (23:27)
[2023-03-11] MEDS: GUAIFENESIN/DM 5 ML UCUP FT PRN ×3 (01:20→20:19)
[2023-03-11 03:39] LABS: Absolute Lymphocytes (CBC) 0.6 K/uL (0.7-4.9); Hematocrit 23.7 % (39.6-49.0); Lymphocytes % 13.4 % (15.3-44.8); MCV 77.4 fL (80-100); MPV 7.6 fL (7.6-11.3); RBC Red Blood Cell Count 3.06 M/uL (4.33-5.43)
[2023-03-11 03:54] LABS: Magnesium 1.7 mg/dL (1.6-2.4); Phosphorus 2.1 mg/dL (2.5-4.9); Potassium 3.3 mEq/L (3.5-5.1)
[2023-03-11] MEDS: CEFEPIME 2 GM in NA CHLORIDE 0.9% 100 ML IV SCH ×3 (04:09→20:15)
[2023-03-11] MEDS: HYDROCODONE/APAP 5/325 MG TAB PO PRN ×2 (04:15→20:14)
[2023-03-11] MEDS ORDERED: POTASSIUM PHOS IN 0.9 % NACL 15 MMOL/250 ML BAG IV ONE (08:00)
[2023-03-11] MEDS ORDERED: POTASSIUM 25 MEQ EFFERV TAB PO ONE (09:00)
--- NOTE | 2023-03-11 09:25 | RAD REPORT ---
EXAM DESCRIPTION: RAD - Chest Single View - 03/11/2023 9:17 am CLINICAL HISTORY: follow-up PNA Chest pain. COMPARISON: Chest Single View dated 03/06/2023; Chest Angio dated 03/06/2023 FINDINGS: Portable technique limits examination quality. Improvement is seen in bilateral pulmonary opacities since 03/06/2023 study. Areas of vague pulmonary nodularity persists. Esophageal stent noted. Tracheostomy tube noted. Left-sided venous catheter has tip in the SVC. Heart is upper limit normal in size. IMPRESSION: Moderate improvement in lung aeration since 03/06/2023.
[2023-03-11] MEDS: VANCOMYCIN 1.5 GM in NA CHLORIDE 0.9% 500 ML IVPB SCH ×2 (09:46→20:15)
[2023-03-11] MEDS: ENOXAPARIN 80 MG/0.8 ML SQ SCH ×2 (09:49→20:15)
[2023-03-11] MEDS: GLUCERNA 1.5 CAL 1,000 ML BOT FT SCH ×4 (09:49→20:16)
[2023-03-11] MEDS: ASPIRIN 81 MG CHEWABLE TABLET FT SCH (09:49)
[2023-03-11] MEDS: GABAPENTIN 300 MG CAP PO SCH ×3 (09:49→20:14)
[2023-03-11] MEDS: ALBUTEROL 2.5 MG/3 ML NEB SOL NEB PRN ×2 (10:42→23:30)
--- NOTE | 2023-03-11 18:51 | P.PN ---
Subjective Date of Service: 03/11/23 Chief Complaint: Hypoxemia pneumonia No acute events overnight. He reports that his symptoms are unchanged. Will be unable to find SNF placement until after 03/15, as his insurance does not become effective until then. Appreciate CM assistance. Review of Systems 10-point ROS is otherwise unremarkable Respiratory: Shortness of Breath Physical Examination - Vital Signs Temperature: 97.9 F Blood Pressure: 150/72 Pulse: 88 Respirations: 17 Pulse Ox (%): 94 - Studies Microbiology Data (last 24 hrs): 03/06/23 10:48 Blood - Blood Aerobic Blood Culture - Final No growth in 5 days. 03/06/23 10:48 Blood - Blood Anaerobic Blood Culture - Final No growth in 5 days. 03/06/23 10:32 Blood - Blood Aerobic Blood Culture - Final No growth in 5 days. 03/06/23 10:32 Blood - Blood Anaerobic Blood Culture - Final No growth in 5 days. Assessment And Plan - Plan - Physical Exam General: Alert, In no apparent distress, Oriented x3 HEENT: Atraumatic, Mucous membr. moist/pink, Other (s/p tracheostomy), Sclerae nonicteric Respiratory: Diminished, faint rhonchi/gurgles Cardiovascular: Normal pulses, Regular rate/rhythm, No murmurs Gastrointestinal: Soft, Non-distended, No tenderness Musculoskeletal: No clubbing Integumentary: No rashes Neurological: Normal affect # Severe Sepsis suspect secondary to Post-Obstructive Pneumonia - POA - improving He met sepsis criteria based on HR > 90 bpm and RR > 20 breaths/min, and the suspected source is pneumonia. Severe sepsis is suspected due to concern for tissue hypoperfusion/organ dysfunction based on lactic acid > 2 mmol/L. - Sepsis order set was initiated - Lactate trend: 2.7 -> 1.8 - Blood cultures drawn = NGTD - Broad spectrum antibiotics started: Vancomycin + Cefepime - In regards to fluids: - 30 mL/kg of IV fluids was not administered given SBP > 90, MAP > 65, lactic acid < 4 - Pulmonology consulted - recommendations appreciated # Type II Non-ST Segment Elevation Myocardial Infarction (Demand Ischemia) due to above - Evaluation thus far: - EKG: without reported STEMI criteria, trend - Serial troponin: 5573.5 -> 5970.0 -> 5027.1 -> 1539.6 - Transthoracic echocardiogram = "1. normal left ventricular ejection fraction 55-60% 2. normal wall motion 3. mild mitral regurgitation 4. small pericardial effusion" - Management plan: - Consult Cardiology and spoke with Dr. Cloud - recommendations appreciated - He feels that the troponin leak is secondary to demand ischemia - Continue aspirin, enoxaparin, atorvastatin - If tolerated, plan to start beta-raphael and ASIA-inhibitor/ARB # Metastatic Lung Cancer s/p Esophageal Stenting, Gastrojejunal Tube, and Tracheostomy - Evaluation thus far: - Chest x-ray = "widespread airspace disease including a masslike right upper lobe opacity. These findings could represent a combination of factors including pneumonia, metastatic disease, and less likely, edema." - CT chest angiogram = "Negative for pulmonary embolism. Severe widespread pulmonary nodularity and mediastinal/hilar adenopathy presumably representing primarily metastatic disease. Other findings including micronodularity and interlobular septal thickening could be due to various etiologies including edema, lymphangitic spread of tumor, and/or aspiration." - Management plan: - Mr. Mclean requested transfer to [facility] for continuity of care. Transfer was denied per "Administrative Denial." - Awaiting records from [facility] - spoke with educational diagnostician, who will attempt to contact [facility] again today - Follow-up with Oncology as an outpatient # Type II Diabetes Mellitus - Correction scale insulin # Deconditioning - Consulted PT/OT - Appreciate CM assistance with SNF placement - Will be unable to place until 03/15 because his insurance does not become effective until that date Morales Sierra M.D.
[2023-03-11] MEDS: MELATONIN 5 MG TABLET PO PRN (20:14)
[2023-03-11] MEDS: ATORVASTATIN 40 MG TAB PO SCH (20:14)
[2023-03-11 21:18] LABS: Phosphorus 2.2 mg/dL (2.5-4.9); Potassium 3.2 mEq/L (3.5-5.1)
[2023-03-12] MEDS: HYDROCODONE/APAP 5/325 MG TAB PO PRN ×4 (02:09→20:32)
[2023-03-12] MEDS: GUAIFENESIN/DM 5 ML UCUP FT PRN ×3 (02:13→20:33)
[2023-03-12] MEDS ORDERED: MAGNESIUM SULFATE 1 gm IVPB 1 GM/100 ML BAG IV ONE (03:54)
[2023-03-12] MEDS: POTASS/SODIUM PHOSPHATE 1 PKT POWD.PACK PO SCH ×3 (04:00→06:16)
[2023-03-12] MEDS: CEFEPIME 2 GM in NA CHLORIDE 0.9% 100 ML IV SCH ×3 (04:24→20:29)
[2023-03-12] MEDS: KCL 20 MEQ/100 mL IVPB 20 MEQ/100 ML BAG IV SCH ×2 (04:24→06:00)
[2023-03-12] MEDS ORDERED: NA CHLORIDE 0.9% 1,000 ML IV SCH (05:00)
[2023-03-12] MEDS: ENOXAPARIN 80 MG/0.8 ML SQ SCH ×2 (09:18→20:33)
[2023-03-12] MEDS: ASPIRIN 81 MG CHEWABLE TABLET FT SCH (09:18)
[2023-03-12] MEDS: GABAPENTIN 300 MG CAP PO SCH ×3 (09:19→20:33)
[2023-03-12] MEDS: GLUCERNA 1.5 CAL 1,000 ML BOT FT SCH ×4 (09:23→20:41)
[2023-03-12 10:55] LABS: Magnesium 1.9 mg/dL (1.6-2.4); Phosphorus 2.4 mg/dL (2.5-4.9); Potassium 3.6 mEq/L (3.5-5.1)
[2023-03-12] MEDS: ALBUTEROL 2.5 MG/3 ML NEB SOL NEB PRN ×2 (11:01→16:05)
[2023-03-12] MEDS ORDERED: POTASSIUM PHOS IN 0.9 % NACL 15 MMOL/250 ML BAG IV ONE (11:09)
[2023-03-12] MEDS: VANCOMYCIN 1.5 GM in NA CHLORIDE 0.9% 500 ML IVPB SCH ×2 (11:12→21:40)
[2023-03-12] MEDS ORDERED: KCL 20 MEQ/100 mL IVPB 20 MEQ/100 ML BAG IV SCH (12:00)
--- NOTE | 2023-03-12 20:19 | P.PN ---
Subjective Date of Service: 03/12/23 Chief Complaint: Hypoxemia pneumonia No acute events overnight. He appears comfortable this morning. Will be unable to find SNF placement until after 03/15, as his insurance does not become effective until then. Appreciate CM assistance. Review of Systems 10-point ROS is otherwise unremarkable Physical Examination - Vital Signs Temperature: 98.3 F Blood Pressure: 158/77 Pulse: 86 Respirations: 18 Pulse Ox (%): 94 Assessment And Plan - Plan - Physical Exam General: Alert, In no apparent distress, Oriented x3 HEENT: Atraumatic, Mucous membr. moist/pink, Other (s/p tracheostomy), Sclerae nonicteric Respiratory: Diminished, faint rhonchi/gurgles Cardiovascular: Normal pulses, Regular rate/rhythm, No murmurs Gastrointestinal: Soft, Non-distended, No tenderness Musculoskeletal: No clubbing Integumentary: No rashes Neurological: Normal affect # Severe Sepsis suspect secondary to Post-Obstructive Pneumonia - POA - improving He met sepsis criteria based on HR > 90 bpm and RR > 20 breaths/min, and the suspected source is pneumonia. Severe sepsis is suspected due to concern for tissue hypoperfusion/organ dysfunction based on lactic acid > 2 mmol/L. - Sepsis order set was initiated - Lactate trend: 2.7 -> 1.8 - Blood cultures drawn = NGTD - Broad spectrum antibiotics started: Vancomycin + Cefepime - In regards to fluids: - 30 mL/kg of IV fluids was not administered given SBP > 90, MAP > 65, lactic acid < 4 - Pulmonology consulted - recommendations appreciated # Type II Non-ST Segment Elevation Myocardial Infarction (Demand Ischemia) due to above - Evaluation thus far: - EKG: without reported STEMI criteria, trend - Serial troponin: 5573.5 -> 5970.0 -> 5027.1 -> 1539.6 - Transthoracic echocardiogram = "1. normal left ventricular ejection fra ction 55-60% 2. normal wall motion 3. mild mitral regurgitation 4. small pericardial effusion" - Management plan: - Consult Cardiology and spoke with Dr. Cloud - recommendations appreciated - He feels that the troponin leak is secondary to demand ischemia - Continue aspirin, enoxaparin, atorvastatin - If tolerated, plan to start beta-raphael and ASIA-inhibitor/ARB # Metastatic Lung Cancer s/p Esophageal Stenting, Gastrojejunal Tube, and Tracheostomy - Evaluation thus far: - Chest x-ray = "widespread airspace disease including a masslike right upper lobe opacity. These findings could represent a combination of factors including pneumonia, metastatic disease, and less likely, edema." - CT chest angiogram = "Negative for pulmonary embolism. Severe widespread pulmonary nodularity and mediastinal/hilar adenopathy presumably representing primarily metastatic disease. Other findings including micronodularity and interlobular septal thickening could be due to various etiologies including edema, lymphangitic spread of tumor, and/or aspiration." - Management plan: - Mr. Mclean requested transfer to [facility] for continuity of care. Transfer was denied per "Administrative Denial." - Awaiting records from [facility] - spoke with medical charge entry specialist, who will attempt to contact [facility] again today - Follow-up with Oncology as an outpatient # Type II Diabetes Mellitus - Correction scale insulin # Deconditioning - Consulted PT/OT - Appreciate CM assistance with SNF placement - Will be unable to place until 03/15 because his insurance does not become effective until that date 03/12 - No new changes today Morales Sierra M.D.
[2023-03-12] MEDS: ATORVASTATIN 40 MG TAB PO SCH (20:33)
[2023-03-12] MEDS: MELATONIN 5 MG TABLET PO PRN (20:41)
[2023-03-13] MEDS: ALBUTEROL 2.5 MG/3 ML NEB SOL NEB PRN ×2 (00:45→08:35)
[2023-03-13] MEDS: HYDROCODONE/APAP 5/325 MG TAB PO PRN ×2 (03:16→10:31)
[2023-03-13] MEDS: GUAIFENESIN/DM 5 ML UCUP FT PRN ×2 (03:19→10:30)
[2023-03-13] MEDS: CEFEPIME 2 GM in NA CHLORIDE 0.9% 100 ML IV SCH (03:20)
[2023-03-13 05:08] LABS: Magnesium 1.9 mg/dL (1.6-2.4); Phosphorus 2.4 mg/dL (2.5-4.9); Potassium 3.7 mEq/L (3.5-5.1)
[2023-03-13] MEDS ORDERED: POTASSIUM PHOS IN 0.9 % NACL 15 MMOL/250 ML BAG IV ONE (08:00)
[2023-03-13 08:41] VITALS: BP 142/79; TEMP 97.4
[2023-03-13] MEDS: VANCOMYCIN 1.5 GM in NA CHLORIDE 0.9% 500 ML IVPB SCH (09:00)
[2023-03-13] MEDS: GLUCERNA 1.5 CAL 1,000 ML BOT FT SCH (09:00)
[2023-03-13 09:01] VITALS: O2SAT 92
[2023-03-13] MEDS: GABAPENTIN 300 MG CAP PO SCH (10:31)
[2023-03-13] MEDS: ASPIRIN 81 MG CHEWABLE TABLET FT SCH (10:31)
[2023-03-13] MEDS: ENOXAPARIN 80 MG/0.8 ML SQ SCH (10:31)
--- NOTE | 2023-03-13 10:52 | P.DS ---
Admission Date: 03/06/23 Discharge Date: 03/13/23 Disposition: ROUTINE DISCHARGE Discharge Condition: GOOD Reason for Admission: Hypoxemia pneumonia Consultations: 1. Cardiology 2. Pulmonology Hospital Course: DIAGNOSES: # Severe Sepsis suspect secondary to Post-Obstructive Pneumonia - POA - resolved # Type II Non-ST Segment Elevation Myocardial Infarction (Demand Ischemia) due to above # Metastatic Lung Cancer s/p Esophageal Stenting, Gastrojejunal Tube, and Tracheostomy # Type II Diabetes Mellitus # Deconditioning HOSPITAL COURSE: Mr. Diego Mclean is a pleasant 57 year old male with a past medical history significant for metastatic lung cancer s/p esophageal stenting, gastrojejunal tube, and tracheostomy; and type 2 diabetes mellitus who was admitted to the [facility] on 03/06/2023 for pneumonia. He was admitted to the Medicine service. Upon further evaluation, his chest x- ray revealed, "widespread airspace disease including a masslike right upper lobe opacity. These findings could represent a combination of factors including pneumonia, metastatic disease, and less likely, edema." CT chest angiogram revealed, "negative for pulmonary embolism. Severe widespread pulmonary nodularity and mediastinal/hilar adenopathy presumably representing primarily metastatic disease. Other findings including micronodularity and interlobular septal thickening could be due to various etiologies including edema, lymphangitic spread of tumor, and/or aspiration." He was started on IV antibiotics, and over the course of his hospitalization, his symptoms improved significantly. Initially, the plan was for him to be discharged to a group home facility; however, today he stated that he would like to be discharged home. He states that he has all of the tracheostomy and tube feeding supplies at home. He assures us that he is able to manage his care at home safely. He was advised that, should he have any difficulties or any changes in symptoms, he should please return to the emergency department for further evaluation. He verbalized understanding and agreed to do so. Additionally, he was counseled to have a repeat chest x-ray with his PCP in 2-3 weeks to ensure resolution of his pneumonia. During his evaluation, he was found to have elevated troponin levels. His troponin trend was 5573.5 -> 5970.0 -> 5027.1 -> 1539.6. His transthoracic echocardiogram revealed, "1. normal left ventricular ejection fraction 55-60% 2. normal wall motion 3. mild mitral regurgitation 4. small pericardial effusion." Cardiology was consulted and he was evaluated by Dr. Cloud. He felt that his troponin trend was secondary to demand ischemia. He has been cleared for discharge from a cardiology standpoint. On 03/13/2023, he was seen on morning rounds and deemed medically stable for discharge. He was discharged with instructions to schedule follow-up appointments with his PCP (XI Uriarte), with Cardiology (Dr. Cloud), with Pulm onology (Dr. Vazquez), and with his Oncologist (Dr. Wolf). He was provided prescriptions for amoxicillin-clavulanate, doxycycline, and atorvastatin. He was given the opportunity to ask questions and reported no further questions. Furthermore, all questions were answered to the best of my ability. A copy of this discharge summary will be sent to the above providers to facilitate continuity of care. Today, I personally spent 35 minutes on his case, of which greater than 50% of the time was spent in patient education, counseling, and coordination of care as described above. - Physical Exam General: Alert, In no apparent distress, Oriented x3 HEENT: Atraumatic, Mucous membr. moist/pink, Other (s/p tracheostomy), Sclerae nonicteric Respiratory: Diminished, faint rhonchi/gurgles Cardiovascular: Normal pulses, Regular rate/rhythm, No murmurs Gastrointestinal: Soft, Non-distended, No tenderness, PEG tube is clean, dry, intact Musculoskeletal: No clubbing Integumentary: No rashes Neurological: Normal affect Vital Signs/Physical Exam: Temp Pulse Resp BP Pulse Ox 97.4 F 102 H 14 142/79 H 100 03/13/23 08:00 03/13/23 08:00 03/13/23 10:31 03/13/23 08:00 03/13/23 10:31 Laboratory Data at Discharge: WBC 4.40 thou/uL (4.3-10.9) 03/11/23 03:08 Hgb 8.1 g/dL (13.6-17.9) L 03/11/23 03:08 Hct 23.7 % (39.6-49.0) L 03/11/23 03:08 Plt Count 473 thou/uL (152-406) H 03/11/23 03:08 PT 13.1 SECONDS (9.5-12.5) H 03/06/23 10:48 INR 1.19 03/06/23 10:48 APTT 25.1 SECONDS (24.3-36.9) 03/06/23 10:48 Sodium 130 mEq/L (136-145) L 03/13/23 04:30 Potassium 3.7 mEq/L (3.5-5.1) 03/13/23 04:30 BUN 7 mg/dL (7-18) 03/13/23 04:30 Creatinine 0.33 mg/dL (0.70-1.30) L 03/13/23 04:30 Glucose 153 mg/dL (74-106) H 03/13/23 04:30 Phosphorus 2.4 mg/dL (2.5-4.9) L 03/13/23 04:30 Magnesium 1.9 mg/dL (1.6-2.4) 03/13/23 04:30 Total Bilirubin 0.5 mg/dL (0.2-1.0) 03/07/23 03:44 AST 38 U/L (15-37) H 03/07/23 03:44 ALT 14 U/L (16-61) L 03/07/23 03:44 Alkaline Phosphatase 78 U/L (45-117) D 03/07/23 03:44 Home Medications: RX: Gabapentin 300 mg PO TID 03/07/23 RX: Hydromorphone [Dilaudid*] 4 mg PO Q6HP PRN 03/07/23 RX: Metformin HCl 500 mg PO DAILY 03/07/23 Amox Tr/Potassium Clavulanate [Augmentin 400-57 mg/5 ml] 10 ml PO BID 10 Days #200 ml 03/13/23 RX: Aspirin Chewable [Aspirin Chewable*] 162 mg FT DAILY tab.chew 03/13/23 RX: Atorvastatin Calcium [Lipitor] 40 mg PO BEDTIME #30 tab 03/13/23 RX: Doxycycline Hyclate 100 mg PO BID 10 Days #20 tab 03/13/23 New Medications: Amox Tr/Potassium Clavulanate [Augmentin 400-57 mg/5 ml] 10 ml PO BID 10 Days #200 ml RX: Doxycycline Hyclate 100 mg PO BID 10 Days #20 tab RX: Atorvastatin Calcium [Lipitor] 40 mg PO BEDTIME #30 tab Physician Discharge Instructions: 1. Please call and schedule a follow-up appointment with your PCP (XI Uriarte) in 3-5 days - Please have your chest x-ray repeated in about 2-3 weeks to make sure your pneumonia has healed 2. Please call and schedule a follow-up appointment with Cardiology (Dr. Cloud) in 5-7 days 3. Please call and schedule a follow-up appointment with your Oncologist (Dr. Wolf) in 5-7 days 4. Please call and schedule a follow-up appointment with Pulmonology (Dr. Vazquez) in 5-7 days Diet: Tube Feeds Activity: Fall precautions Followup: Sherie Uriarte, COLLECTION CLERK [[employer]IED HE[employer] PROFESSIONAL] - Time spent managing pt's care (in minutes): 35
== END 2023-03-13 11:45 | disposition home or self-care (01) | DRG 871 ==
LOC: ER 10:17 → ERHOLD 14:54 → 2ND 15:28
PROVIDERS: ADMIT Internal Medicine Sleep Medicine; ATTEND Internal Medicine
DX: A41.9 Sepsis, unspecified organism (principal); I21.A1 Myocardial infarction type 2; J18.9 Pneumonia, unspecified organism; C78.00 Secondary malignant neoplasm of unspecified lung; R65.20 Severe sepsis without septic shock; E86.0 Dehydration; D64.9 Anemia, unspecified; I34.0 Nonrheumatic mitral (valve) insufficiency; E11.9 Type 2 diabetes mellitus without complications; Z93.0 Tracheostomy status; Z95.5 Presence of coronary angioplasty implant and graft; Z85.118 Personal history of other malignant neoplasm of bronchus and lung; Z20.822 Contact with and (suspected) exposure to COVID-19; Y95 Nosocomial condition
CPT/HCPCS: 36415; 71045; 71275; 80048; 80053; 80202; 81003; 82947; 83605; 83735; 84100; 84132; 84484; 85025; 85610; 85730; 87040; 87070; 87205; 87804; 93005; 93306; 94760; 96374; 96375; 97165; 99285; J0692; J1170; J1650; J1940; J3475; J3480; J7030; J7040; J7050; J7613; Q9967; U0003